=== PATIENT | female | born 1995 | race American Indian/Alaskan Native ===

== ENCOUNTER 2019-01-20 10:39 | Emergency (ER) | payer MEDICAID ==
[2019-01-20 10:47] VITALS: BP 116/84
--- NOTE | 2019-01-20 11:46 | Emergency Department Report ---
Minor Respiratory - HPI Chief Complaint: Upper Respiratory Infection Stated Complaint: THROAT SWELLING/PAIN Time Seen by Provider: 01/20/19 11:31 Duration: 2 Days Pain Location: Facial, Throat, Nose Minor Respiratory: Yes Rhinorrhea, Yes Sore Throat, Yes Able to Tolerate Fluids, Yes Cough, No Ear Pain, No Sick Contacts, No Hemoptysis, No Chest Pain, No Shortness of Breath, No Fever Other History: Pascale is a 23-year-old female who presents with sore throat coughing sneezing and nasal congestion. She has swelling in the submandibular region. She had the swelling on previous occasions with similar illness. Gradual onset of symptoms. Mount in severity. No other associated symptoms. Denies fever. Denies toothache. ED Review of Systems ROS: Stated complaint: THROAT SWELLING/PAIN Other details as noted in HPI Constitutional: malaise. denies: fever ENT: throat pain, congestion Respiratory: denies: cough, shortness of breath, wheezing Gastrointestinal: denies: abdominal pain, vomiting ED Past Medical Hx - Past Medical History Hx Psychiatric Treatment: Yes (adhd) - Surgical History Past Surgical History?: No - Social History Smoking Status: Never Smoker Substance Use Type: None - Medications Home Medications: Home Medications Medication Instructions Recorded Confirmed Last Taken Type Acetaminophen/Codeine [Tylenol #3] 1 tab PO Q6H PRN #20 tab 11/28/14 Unknown Rx Ibuprofen [Motrin] 600 mg PO Q8H PRN #40 tablet 11/28/14 Unknown Rx Loratadine [Claritin] 10 mg PO DAILY #30 tablet 11/28/14 Unknown Rx predniSONE [Deltasone] 20 mg PO QDAY #5 tab 11/28/14 Unknown Rx Amoxicillin/Potassium Clav 1 each PO BID 10 Days #20 tablet 01/20/19 Unknown Rx [Augmentin 875-125 Tablet] Minor Respiratory Exam - Exam General: Vital signs noted. No distress. Alert and acting appropriately. fullness in submandibular region HEENT: Yes Moist Mucous Membranes, No Pharyngeal Erythema, No Pharyngeal Exudates, No Rhinorrhea, No Conjuctival Injection Neck: Yes Adenopathy, Yes Supple Lungs: Yes Good Air Exchange, No Wheezes, No Ronchi, No Stridor, No Cough, No Labored Respirations, No Retractions, No Use of Accessory Muscles, No Other Abnormal Lung Sounds Heart: Yes Regular, No Murmur Abdomen: Yes Normal Bowel Sounds, No Tenderness, No Peritoneal Signs Skin: No Rash, No Edema Neurologic: Alert and oriented, no deficits. Musculoskeletal: Unremarkable. ED Course Vital Signs 01/20/19 10:44 Temperature 98.3 F Pulse Rate 94 H Respiratory 18 Rate Blood Pressure 116/84 O2 Sat by Pulse 94 Oximetry ED Medical Decision Making - Medical Decision Making URI symptoms with submandibular infection suspected, rx: augmentin, no indication of Jayden's angina or dental infection or airway compromise. Critical care attestation.: If time is entered above; I have spent that time in minutes in the direct care of this critically ill patient, excluding procedure time. ED Disposition Clinical Impression: Sialadenitis, URI (upper respiratory infection) Disposition: TO HOME OR SELFCARE Is pt being admited?: No Does the pt Need Aspirin: No Condition: Stable Instructions: Sialoadenitis (ED) Prescriptions: Amoxicillin/Potassium Clav [Augmentin 875-125 Tablet] 1 each PO BID 10 Days #20 tablet Referrals: AMY BLANK MD [Primary Care Provider] - 3-5 Days NYASIA NIETO DO [Staff Physician] - 3-5 Days Forms: Work/School Release Form(ED)
== END 2019-01-20 11:55 | disposition home or self-care (01) ==
LOC: ED 10:39
DX: K11.20 Sialoadenitis, unspecified (principal); J06.9 Acute upper respiratory infection, unspecified; Z79.899 Other long term (current) drug therapy
CPT/HCPCS: 99281